=== PATIENT | male | born 1995 | race American Indian/Alaskan Native ===

== ENCOUNTER 2017-01-09 03:54 | Emergency (ER) | payer SELFPAY ==
[2017-01-09 04:06] VITALS: BP 125/66
--- NOTE | 2017-01-09 05:55 | Emergency Department Report ---
ED Upper Extremity Inj HPI - General Chief Complaint: Extremity Injury, Upper Stated Complaint: RIGHT THUMP PAIN Time Seen by Provider: 01/09/17 05:33 Source: patient Mode of arrival: Ambulatory Limitations: No Limitations - History of Present Illness Initial Comments: 21-year-old male past medical history none presents with complaint of pain to distal right thumb status post accidentally slamming edge of the thumb in door frame at work on . Patient is awake alert and oriented 3 has visible subungual hematoma to the right thumb nail bed. Denies any other injuries. No open lacerations. -: Last night Other Extremity Injury: Fingers: Right (right distal thumb) Handedness: right Place: home Severity scale (0 -10): 7 Context: direct blow, injury Associated Symptoms: denies other symptoms - Related Data Previous Rx's Medication Instructions Recorded Last Taken Type Bacitracin/Polymixin B [Polysporin] 1 applicatio TP BID #1 tube 01/09/17 Unknown Rx Ibuprofen [Motrin] 800 mg PO Q8HR PRN #20 tablet 01/09/17 Unknown Rx Allergies Allergy/AdvReac Type Severity Reaction Status Date / Time No Known Allergies Allergy Unverified 01/09/17 04:06 ED Review of Systems ROS: Stated complaint: RIGHT THUMP PAIN Other details as noted in HPI Constitutional: denies: chills, fever Eyes: denies: eye pain, eye discharge, vision change ENT: denies: ear pain, throat pain Respiratory: denies: cough, shortness of breath, wheezing Cardiovascular: denies: chest pain, palpitations Endocrine: no symptoms reported Gastrointestinal: denies: abdominal pain, nausea, diarrhea Genitourinary: denies: urgency, dysuria Musculoskeletal: as per HPI. denies: back pain, joint swelling, arthralgia Skin: denies: rash, lesions Neurological: denies: headache, weakness, paresthesias Psychiatric: denies: anxiety, depression Hematological/Lymphatic: denies: easy bleeding, easy bruising ED Past Medical Hx - Past Medical History Previous Medical History?: No - Surgical History Past Surgical History?: No - Social History Smoking Status: Never Smoker Substance Use Type: None - Medications Home Medications: Home Medications Medication Instructions Recorded Confirmed Last Taken Type Bacitracin/Polymixin B [Polysporin] 1 applicatio TP BID #1 tube 01/09/17 Unknown Rx Ibuprofen [Motrin] 800 mg PO Q8HR PRN #20 tablet 01/09/17 Unknown Rx ED Physical Exam - General Limitations: No Limitations General appearance: alert, in no apparent distress - Head Head exam: Present: atraumatic, normocephalic - Eye Eye exam: Present: normal appearance, PERRL, EOMI - ENT ENT exam: Present: mucous membranes moist - Neck Neck exam: Present: normal inspection - Respiratory Respiratory exam: Present: normal lung sounds bilaterally. Absent: respiratory distress - Cardiovascular Cardiovascular Exam: Present: regular rate, normal rhythm. Absent: systolic murmur, diastolic murmur, rubs, gallop - GI/Abdominal GI/Abdominal exam: Present: soft, normal bowel sounds - Rectal Rectal exam: Present: deferred - Extremities Exam Extremities exam: Present: normal inspection - Expanded Upper Extremity Exam Right Shoulder Exam: Present: normal inspection, full ROM Upper Arm exam: Present: normal inspection, full ROM Elbow exam: Present: normal inspection, full ROM Forearm Wrist exam: Present: normal inspection, full ROM Hand Wrist exam: Present: full ROM (range of motion MCPs PIPs DIPs fully intact , no snuffbox tenderness), swelling (swelling) Hand L/R Back: 1 - Subungual hematoma Neuro motor exam: Present: wrist extension intact, thumb opposition intact, thumb IP flexion intact, thumb adduction intact, fingers 2-5 abduction intact, other Vascular: Present: normal capillary refill - Back Exam Back exam: Present: normal inspection - Neurological Exam Neurological exam: Present: alert, oriented X3, CN II-XII intact, normal gait - Psychiatric Psychiatric exam: Present: normal affect, normal mood - Skin Skin exam: Present: warm, dry, intact, normal color. Absent: rash ED Course Vital Signs 01/09/17 04:02 Temperature 98.0 F Pulse Rate 90 Respiratory 17 Rate Blood Pressure 125/66 O2 Sat by Pulse 99 Oximetry - I & D Right Distal Finger Type of Procedure: Simple Site: right distal thumb nail bed Blade Size: 11 I & D Procedure: betadine prep Progress: Area cleaned with iodine, single trephination made using cautery device in Center of thumbnail bed, moderate amount of drainage of subungual hematoma and covered with triple antibiotic and gauze wrap after ED Medical Decision Making - Medical Decision Making A/P: Subungual hematoma right thumb nail 1-no visible fracture on x-ray on the range of motion fully intact right thumb, no snuffbox tenderness 2-moderate amount of drainage of subungual hematoma with trephination using cautery device 3-abx ointment, Band-Aid placed over 4- I informed the patient that it is possible that his nail may naturally slough off. instructed on acute wound care. Advised to return to the ED for any pus significant swelling or redness from area 5- tetanus vac. up-to-date as per patient Critical care attestation.: If time is entered above; I have spent that time in minutes in the direct care of this critically ill patient, excluding procedure time. ED Disposition Clinical Impression: Subungual hematoma of fingernail Qualifiers: Encounter type: initial encounter Qualified Code(s): S60.10XA - Contusion of unspecified finger with damage to nail, initial encounter Disposition: TO HOME OR SELFCARE Is pt being admited?: No Does the pt Need Aspirin: No Condition: Stable Instructions: Subungual Hematoma (ED), Incision and Drainage (ED) Prescriptions: Bacitracin/Polymixin B [Polysporin] 1 applicatio TP BID #1 tube Ibuprofen [Motrin] 800 mg PO Q8HR PRN #20 tablet PRN Reason: Pain Referrals: [facility] [Outside] - 3-5 Days [facility] [Outside] - 3-5 Days [facility] [Provider Group] - 3-5 Days Forms: Work/School Release Form(ED) Time of Disposition: 05:57
[2017-01-09] MEDS ORDERED: TRIPLE ANTIBIOTIC TP ONE (05:56)
[2017-01-09] MEDS ORDERED: MOTRIN PO ONE (05:56)
--- NOTE | 2017-01-09 09:31 | XRay Report ---
Right hand 2 views: History: Injury. Findings: No articular abnormality. No fracture, dislocation or periosteal reaction. Impression: No evidence acute fracture.
== END 2017-01-09 06:21 | disposition home or self-care (01) ==
LOC: ED 03:54
DX: S60.111A Contusion of right thumb with damage to nail, initial encounter (principal); W23.0XXA Caught, crushed, jammed, or pinched between moving objects, initial encounter; Y93.89 Activity, other specified; Y99.8 Other external cause status; Y92.098 Other place in other non-institutional residence as the place of occurrence of the external cause
CPT/HCPCS: A6250

== ENCOUNTER 2017-12-11 15:49 | Emergency (ER) | payer SELFPAY ==
[2017-12-11 16:06] VITALS: BP 142/67
[2017-12-11] MEDS ORDERED: XYLOCAINE 1% MPF 5 mL INFILTRATI ONE (20:14)
[2017-12-11] MEDS ORDERED: ZITHROMAX PO ONE (20:14)
[2017-12-11] MEDS ORDERED: ROCEPHIN IM ONE (20:14)
--- NOTE | 2017-12-11 20:21 | Emergency Department Report ---
ED Male HPI - General Chief complaint: Urogenital-Male Stated complaint: URINE PROBLEM Time Seen by Provider: 12/11/17 19:41 Source: patient Mode of arrival: Ambulatory Limitations: No Limitations - History of Present Illness Initial comments: Patient -Malag[place] male presents for Std Exposure partner told him she had an STD pt state clear discharge itching no rash no lesions no open sore. the abdominal pain no n/v no fever or chills MD Complaint: penile discharge, dysuria Onset/Timin -: Sudden, days(s) Location: penis Radiation: none Severity: moderate Severity scale (0 -10): 4 Quality: burning Consistency: intermittent Improves with: none Worsens with: urination discharge, dysuria. denies: swelling, mass, rash, urinary retention, blood in urine, fever, nausea/vomiting, incontinence - Related Data Sexually active: Yes Previous Rx's Medication Instructions Recorded Last Taken Type Bacitracin/Polymixin B [Polysporin] 1 applicatio TP BID #1 tube 01/09/17 Unknown Rx Ibuprofen [Motrin] 800 mg PO Q8HR PRN #20 tablet 01/09/17 Unknown Rx Doxycycline [Vibramycin CAP] 100 mg PO Q12HR #20 capsule 12/11/17 Unknown Rx Allergies Allergy/AdvReac Type Severity Reaction Status Date / Time No Known Allergies Allergy Unverified 01/09/17 04:06 ED Review of Systems ROS: Stated complaint: URINE PROBLEM Other details as noted in HPI Constitutional: denies: chills, fever Eyes: denies: eye pain, eye discharge, vision change ENT: denies: ear pain, throat pain Respiratory: denies: cough, shortness of breath, wheezing Cardiovascular: denies: chest pain, palpitations Endocrine: no symptoms reported Gastrointestinal: denies: abdominal pain, nausea, diarrhea Genitourinary: urgency, dysuria, frequency, discharge. denies: testicular pain , testicular mass Musculoskeletal: denies: back pain, joint swelling, arthralgia Skin: denies: rash, lesions Neurological: denies: headache, weakness, paresthesias Psychiatric: denies: anxiety, depression Hematological/Lymphatic: denies: easy bleeding, easy bruising ED Past Medical Hx - Past Medical History Previous Medical History?: No - Surgical History Past Surgical History?: No - Social History Smoking Status: Never Smoker Substance Use Type: None - Medications Home Medications: Home Medications Medication Instructions Recorded Confirmed Last Taken Type Bacitracin/Polymixin B [Polysporin] 1 applicatio TP BID #1 tube 01/09/17 Unknown Rx Ibuprofen [Motrin] 800 mg PO Q8HR PRN #20 tablet 01/09/17 Unknown Rx Doxycycline [Vibramycin CAP] 100 mg PO Q12HR #20 capsule 12/11/17 Unknown Rx ED Physical Exam - General Limitations: No Limitations General appearance: alert, in no apparent distress - Head Head exam: Present: atraumatic, normocephalic - Eye Eye exam: Present: normal appearance - ENT ENT exam: Present: mucous membranes moist - Neck Neck exam: Present: normal inspection - Respiratory Respiratory exam: Present: normal lung sounds bilaterally. Absent: respiratory distress - Cardiovascular Cardiovascular Exam: Present: regular rate, normal rhythm. Absent: systolic murmur, diastolic murmur, rubs, gallop - GI/Abdominal GI/Abdominal exam: Present: soft, normal bowel sounds. Absent: distended, tenderness, guarding, rebound, rigid, mass, bruit, pulsatile mass, hernia - Rectal Rectal exam: Present: deferred - exam: Present: urethral discharge (clear ), circumcision. Absent: testicular tenderness, scrotal swelling, vertical testicular lie - Extremities Exam Extremities exam: Present: normal inspection - Back Exam Back exam: Present: normal inspection - Neurological Exam Neurological exam: Present: alert, oriented X3 - Psychiatric Psychiatric exam: Present: normal affect, normal mood - Skin Skin exam: Present: warm, dry, intact, normal color. Absent: rash ED Course Vital Signs 12/11/17 16:03 Temperature 98.4 F Pulse Rate 88 Respiratory 18 Rate Blood Pressure 142/67 O2 Sat by Pulse 98 Oximetry ED Medical Decision Making - Medical Decision Making pt tx for std will follow up with health department for hiv and hsv screening pt verbalized agreement and uderstanding with discharge plan. Critical care attestation.: If time is entered above; I have spent that time in minutes in the direct care of this critically ill patient, excluding procedure time. ED Disposition Clinical Impression: STD (male) Disposition: DC-01 TO HOME OR SELFCARE Is pt being admited?: No Does the pt Need Aspirin: No Condition: Good Instructions: Sexually Transmitted Diseases in Adolescents (ED) Additional Instructions: follow up with health department for hiv and hsv screening Prescriptions: Doxycycline [Vibramycin CAP] 100 mg PO Q12HR #20 capsule Referrals: [facility] [Outside] - 3-5 Days Forms: Work/School Release Form(ED) Time of Disposition: 20:26
== END 2017-12-11 21:25 | disposition home or self-care (01) ==
LOC: ED 15:49
DX: A64 Unspecified sexually transmitted disease (principal)
CPT/HCPCS: 96372; 99282; J0696